=== PATIENT | female | born 1995 | race Caucasian/White ===

== ENCOUNTER 2019-10-09 11:26 | Inpatient (IN) | payer MEDICAID ==
[2019-10-09] MEDS ORDERED: RINGERS SOLUTION,LACTATED 1,000 ML IV PRN (12:30)
[2019-10-09] MEDS ORDERED: RINGERS SOLUTION,LACTATED 1,000 ML IV ONE (12:30)
--- NOTE | 2019-10-09 12:38 | Warning Signs in Babies ---
VOD Warning Signs Datetime Report Generated by N: 10/09/2019 12:38 VOD#608 -Warning Signs in Babies: Viewed with Parent(s)/Family (10/09/2019 12:37:Jerry Garcia RN)
[2019-10-09 13:01] LABS: APPEARANCE,URINE SLIGHTLY-CLOUDY; BILIRUBIN,URINE NEGATIVE (NEGATIVE); COLOR,URINE YELLOW; GLUCOSE, URINE NEGATIVE (NEGATIVE); KETONES,URINE 20 mg/dL (NEGATIVE); LEUKOCYTE ESTERASE,URINE NEGATIVE (NEGATIVE); NITRITE,URINE NEGATIVE (NEGATIVE); PROTEIN,URINE 100 mg/dL (NEGATIVE); URINE SPECIFIC GRAVITY 1.014; UROBILINOGEN,URINE NEGATIVE mg/dL (<2.0)
[2019-10-09 13:21] LABS: URINE AMPHETAMINES SCREEN NEGATIVE; URINE BARBITURATES SCREEN NEGATIVE; URINE BENZODIAZEPINES SCREEN NEGATIVE; URINE COCAINE SCREEN NEGATIVE; URINE MARIJUANA (THC) SCREEN NEGATIVE; URINE METHADONE SCREEN NEGATIVE; URINE PHENCYCLIDINE SCREEN NEGATIVE
[2019-10-09] MEDS ORDERED: OXYTOCIN 10 UNIT/ML VIAL ONE (13:24)
[2019-10-09] MEDS ORDERED: LIDOCAINE 1% INJ-PF (10 MG/ML) 30 ML SDV ONE (13:24)
[2019-10-09] MEDS ORDERED: MISOPROSTOL 0.2 MG TABLET ONE (13:24)
[2019-10-09] MEDS ORDERED: OXYTOCIN/0.9 % SODIUM CHLORIDE 30 UNIT/500 ML RTUINJ ONE (13:25)
[2019-10-09 13:28] LABS: ABSOLUTE LYMPHOCYTES (AUTO) 1.3 10^3/uL (0.5-4.7); ABSOLUTE MONOCYTES (AUTO) 0.6 10^3/uL (0.1-1.4); ABSOLUTE NEUT (AUTO) 8.2 10^3/uL (1.7-8.2); BASOPHILS % (AUTO) 0.4 % (0-2); EOSINOPHILS % (AUTO) 0.1 % (0-6); HEMATOCRIT 33.2 % (36.0-47.0); HEMOGLOBIN 11.3 g/dL (12.0-15.5); LYMPHOCYTES % (AUTO) 12.9 % (13-45); MEAN CORPUSCULAR HEMOGLOBIN 30.4 pg (27.0-33.4); MEAN CORPUSCULAR HGB CONC 34.1 g/dL (32.0-36.0); MEAN CORPUSCULAR VOLUME 89 fl (80-97); MONOCYTES % (AUTO) 5.9 % (3-13); PLATELET COUNT 164 10^3/uL (150-450); RED BLOOD COUNT 3.73 10^6/uL (3.72-5.28); RED CELL DISTRIBUTION WIDTH 13.7 % (11.5-14.0); SEGMENTED NEUTROPHILS % (AUTO) 80.7 % (42-78); TOTAL CELLS COUNTED % (AUTO) 100 %; WHITE BLOOD COUNT 10.2 10^3/uL (4.0-10.5)
--- NOTE | 2019-10-09 13:37 | Admission Physical ---
Datetime Report Generated by CPN: 10/09/2019 13:37 CURRENT ADMISSION Hx Assessment: The History has been Reviewed and is Current Chief Complaint: Uterine Contractions Chief Complaint Other: ROM Indication for Induction: Not Applicable Admit Impression : Term, Intrauterine ; Active Labor; Ruptured Membranes Admit Plan: Admit to Unit; Initiate Labor Protocol ALLERGIES Medication Allergies: No Medication Allergies: crab/MO (10/09/2019) Latex: No Latex Allergies Food Allergies: Crab Environmental Allergies: None OBSTETRICAL HISTORY EDC: 10/13/2019 00:00 : 1 Para: 0 Term: 0 : 0 SAB: 0 IAB: 0 Ectopic: 0 Cesareans: 0 VBACs: 0 Multiple Births: 0 Gestational Diabetes: No Rh Sensitization: No Incompetent Cervix: No CARMELINA: No Infertility: No ART Treatment: No Uterine Anomaly: No IUGR: No Hx Previous C/S: No Macrosomia: No Hx Loss/Stillborn: No PIH: No Hx : No Placenta Previa/Abruption: No Depression/PP Depression: No PTL/PROM: No Post Hemorrhage: No Current Procedures: Ultrasound Obstetrical History Comments: G1- current SEE RECORDS Alcohol: No Marijuana : No Cocaine: No Other Illicit Drugs: No Cigarettes: Former Smoker. [id number] MEDICAL HISTORY Diabetes: No Blood Transfusion: No Pulmonary Disease (Asthma, TB): No Breast Disease: No Hypertension: No Clinical Biochemist Surgery: No Heart Disease: No Hosp/Surgery: Yes Autoimmune Disorder: No Anesthetic Complications: No Kidney Disease: No Abnormal Pap Smear: No Neuro/Epilepsy: No Psychiatric Disorders: No Other Medical Diseases: No Hepatitis/Liver Disease: No Significant Family History: No Varicosities/Phlebitis: No Trauma/Violence : No Thyroid Dysfunction: No Medical History Comments: Mims teeth removed INFECTIOUS HISTORY Gonorrhea: No Genital Herpes: No Chlamydia: No Tuberculosis: No Syphilis: No Hepatitis: No HIV/AIDS Exposure: No Rash or Viral Illness: No HPV: No PHYSICAL EXAM General: Normal HEENT: Normal Neurologic: Normal Thyroid: Deferred Heart: Normal Lungs: Normal Breast: Deferred Back: Normal Abdomen: Normal Genitourinary Exam: Normal Extremities: Normal DTRs: Deferred Pelvic Type: Adequate Physical Exam Comments: vegetarian SROM GBS neg FETUS A EGA: 39.3 Monitoring: External US Admit Comment: Admitted to LD with SROM, GBS neg, Dr. Astorga Aware PLANS FOR LABOR AND DELIVERY Labor and Delivery: None Pain Management: Epidural Feeding Preference: Both Benefit of Breast Feed Discussed: Yes INFORMED CONSENT Assignment: Chi Astorga MD Signature: with User ID: [email or web address] : with User ID: [email or web address]
--- NOTE | 2019-10-09 15:11 | L&D Progress Notes ---
PROGRESS NOTES Datetime Report Generated by CPN: 10/09/2019 15:11 PROGRESS NOTE Comment: Cat 1 strip, irreg uc's, will recheck and if no progress start Pitocin per Dr. Astorga FETUS A : 39.2 SIGNATURE SIGNATURE: [id number] Assignment: Chi Astorga MD Signature: with User ID: [email or web address] : with User ID: [email or web address]
[2019-10-09] MEDS ORDERED: OXYTOCIN/0.9 % SODIUM CHLORIDE 30 UNIT/500 ML RTUINJ IV PRN ×2 (15:36→22:33)
[2019-10-09] MEDS ORDERED: EPHEDRINE SULFATE INJ 50 MG/1 ML AMPULE ONE (17:06)
[2019-10-09] MEDS ORDERED: ROPIVACAINE HCL 0.2% INJ/PF (2 MG/ML) 20 ML SDV ONE (17:06)
[2019-10-09] MEDS ORDERED: FENTANYL/BUPIVACAINE/NS/PF 300 MCG/150 ML RTUINJ EPI ONE (17:06)
[2019-10-09] MEDS ORDERED: ACETAMINOPHEN 650 MG SUPP.RECT PR PRN (22:33)
[2019-10-09] MEDS ORDERED: MEASLES,MUMPS&RUBELLA VACC/PF 0.5 ML VIAL SUBCUT PRN (22:33)
[2019-10-09] MEDS ORDERED: GLYCERIN/WITCH HAZEL LEAF 1 EACH MED..WIPE TP PRN (22:33)
[2019-10-09] MEDS ORDERED: DIBUCAINE 1% OINTMENT 28 GM TP PRN (22:33)
[2019-10-09] MEDS ORDERED: ACETAMINOPHEN WITH CODEINE #3 TABLET PO PRN (22:33)
[2019-10-09] MEDS ORDERED: PSEUDOEPHEDRINE HCL 30 MG TABLET PO PRN (22:33)
[2019-10-09] MEDS ORDERED: ZOLPIDEM TARTRATE 5 MG TABLET PO PRN (22:33)
[2019-10-09] MEDS ORDERED: MAGNESIUM HYDROXIDE SUSP 30 ML UDCUP PO PRN (22:33)
[2019-10-09] MEDS ORDERED: BENZOCAINE/MENTHOL AEROSOL SPRAY 56 ML TOP PRN (22:33)
[2019-10-09] MEDS ORDERED: PROMETHAZINE HCL 25 MG TABLET PO PRN (22:33)
[2019-10-09] MEDS ORDERED: DIPH/PERTUSS(ACELL)/TETANUS VAC/PF 0.5 ML SYR (>=10YO) IM PRN (22:33)
[2019-10-09] MEDS ORDERED: DIPHENHYDRAMINE HCL 25 MG CAPSULE PO PRN (22:33)
[2019-10-09] MEDS ORDERED: PROMETHAZINE HCL INJ 25 MG/1 ML VIAL IV PRN (22:33)
[2019-10-09] MEDS ORDERED: NA PHOS,M-B/NA PHOS,DI-BA (ADULT) 133 ML ENEMA PR PRN (22:33)
[2019-10-09] MEDS ORDERED: PROMETHAZINE HCL 25 MG SUPP.RECT PR PRN (22:33)
--- NOTE | 2019-10-10 00:18 | Delivery Summary ---
Del Sum A-C Datetime Report Generated by CPN: 10/10/2019 00:18 DELIVERY PERSONNEL DELIVERY PERSONNEL: [id number] Delivery Doctor:: Chi Astorga MD Labor and Delivery Nurse:: Allison Munoz RN Labor and Delivery Nurse:: Feli House RN Nursery Nurse:: Ly REYES Asset Management Analyst/METAL TRIM ERECTOR: Juliana Beebe, LABORATORY SAMPLE CARRIER MATERNAL INFORMATION Delivery Anesthesia: Epidural Medications After Delivery: Pitocin Bolus-Please Comment; Pitocin 30 Units in 500ml NS/D5W Meds After Delivery Comment: pitocin bolus following placenta delivery Delivery QBL: 300 Maternal Complications: None LABOR SUMMARY EDC: 10/13/2019 00:00 No. Babies in Womb: 1 Attempted: No Labor Anesthesia: Epidural LABOR INFORMATION Reason for Induction: Not Applicable Onset of Labor: 10/09/2019 13:07 Complete Dilatation: 10/09/2019 21:06 Oxytocin: Augmentation Group B Beta Strep: Negative Steroids Given: None Reason Steroids Not Administered: Not Applicable MEMBRANES Membranes Rupture Method: Spontaneous Rupture of Membranes: 10/09/2019 01:00 Length of Rupture (hr): 21.38 Amniotic Fluid Color: Clear Amniotic Fluid Amount: Small STAGES OF LABOR Stage 1 hr: 7 Stage 1 min: 59 Stage 2 hr: 1 Stage 2 min: 17 Stage 3 hr: 0 Stage 3 min: 4 Total Time in Labor hr: 9 Total Time in Labor min: 20 VAGINAL DELIVERY Episiotomy: None Laceration #1: None Laceration Extension #1: N/A Laceration Repair: Not Applicable Sponge Count Correct: N/A Sharps Count Correct: N/A CSECTION DELIVERY Primary Indication: N/A Secondary Indication: N/A CSection Urgency: N/A CSection Incidence: N/A Labor: N/A Elective: N/A CSection Incision: N/A BABY A INFORMATION Delivery Date/Time: 10/09/2019 22:23 Method of Delivery: Vaginal Nurse Controlled Delivery: No Born in Route : No : N/A Forceps: N/A Vacuum Extraction: N/A Shoulder Dystocia : No PRESENTATION/POSITION BABY A Presentation: Cephalic Cephalic Presentation: Vertex Vertex Position: Right Occipital Anterior Breech Presentation: N/A PLACENTA INFORMATION BABY A Placenta Delivery Time : 10/09/2019 22:27 Placenta Method of Delivery: Spontaneous Placenta Status: Delivered SCORES BABY A Heart Rate 1 min: >100 bpm Resp Effort 1 min: Good Cry Reflex Irritability 1 min: Cough or Sneeze or Pulls Away Muscle Tone 1 min: Active Motion Color 1 min: Blue/Pale Resuscitation Effort 1 min: Tactile Stimulation SCORE 1 MIN: 8 Heart Rate 5 min: >100 bpm Resp Effort 5 min: Good Cry Reflex Irritability 5 min: Cough or Sneeze or Pulls Away Muscle Tone 5 min: Active Motion Color 5 min: Body [place], Extremities Blue Resuscitation Effort 5 min: N/A SCORE 5 MIN: 9 INFORMATION BABY A Gestational Age at Delivery: 39.3 Gestational Status: Full Term- 39- 40.6 Weeks Outcome : Liveborn Condition : Stable Infant Sex: Male IDENTIFICATION BABY A Infant Verification Date/Time: 10/09/2019 23:28 ID Band Number: [id number] Mother's Name Verified: Yes RN Verifying Infant: Christin Munoz RN/Chris Geedavidscott RN WEIGHT/LENGTH BABY A Infant Birthweight (gm): 3590 Infant Weight (lb): 7 Infant Weight (oz): 15 Length (in): 22.00 Length (cm): 55.88 CORD INFORMATION BABY A No. Cord Vessels: 3 Nuchal Cord : Around Neck x1, Loose Cord Blood Taken: Yes-For Storage (Mom's Blood type +) Infant Suction: Mouth ASSESSMENT BABY A Complications: Other Infant Complications- Other: terminal mec Physical Findings at Delivery: Within Normal Limits; Other Physical Findings- Other: see nursery assessment Respirations: Appears Normal Skin to Skin: Yes Skin to Skin Time (min): 60 Dial Printer/ALS Called : No Infant Care By: Ly Ad RN Transferred To: Remains with Mother BABY B INFORMATION : N/A SIGNATURES Signature: with User ID: [email or web address]
--- NOTE | 2019-10-10 01:41 | Delivery Summary ---
Del Sum A-C Datetime Report Generated by CPN: 10/10/2019 01:41 DELIVERY PERSONNEL DELIVERY PERSONNEL: [id number] Delivery Doctor:: Chi Astorga MD Labor and Delivery Nurse:: Allison Munoz RN Labor and Delivery Nurse:: Feli House RN Nursery Nurse:: Ly REYES Animal Care Provider/MACHINE ADJUSTER LEADER: Juliana Beebe, INTERNATIONAL STUDENT ADVISOR MATERNAL INFORMATION Delivery Anesthesia: Epidural Medications After Delivery: Pitocin Bolus-Please Comment; Pitocin 30 Units in 500ml NS/D5W Meds After Delivery Comment: pitocin bolus following placenta delivery Delivery QBL: 300 Maternal Complications: None LABOR SUMMARY EDC: 10/13/2019 00:00 No. Babies in Womb: 1 Attempted: No Labor Anesthesia: Epidural LABOR INFORMATION Reason for Induction: Not Applicable Onset of Labor: 10/09/2019 13:07 Complete Dilatation: 10/09/2019 21:06 Oxytocin: Augmentation Group B Beta Strep: Negative Steroids Given: None Reason Steroids Not Administered: Not Applicable MEMBRANES Membranes Rupture Method: Spontaneous Rupture of Membranes: 10/09/2019 01:00 Length of Rupture (hr): 21.38 Amniotic Fluid Color: Clear Amniotic Fluid Amount: Small STAGES OF LABOR Stage 1 hr: 7 Stage 1 min: 59 Stage 2 hr: 1 Stage 2 min: 17 Stage 3 hr: 0 Stage 3 min: 4 Total Time in Labor hr: 9 Total Time in Labor min: 20 VAGINAL DELIVERY Episiotomy: None Laceration #1: None Laceration Extension #1: N/A Laceration Repair: Not Applicable Sponge Count Correct: N/A Sharps Count Correct: N/A CSECTION DELIVERY Primary Indication: N/A Secondary Indication: N/A CSection Urgency: N/A CSection Incidence: N/A Labor: N/A Elective: N/A CSection Incision: N/A BABY A INFORMATION Delivery Date/Time: 10/09/2019 22:23 Method of Delivery: Vaginal Nurse Controlled Delivery: No Born in Route : No : N/A Forceps: N/A Vacuum Extraction: N/A Shoulder Dystocia : No PRESENTATION/POSITION BABY A Presentation: Cephalic Cephalic Presentation: Vertex Vertex Position: Right Occipital Anterior Breech Presentation: N/A PLACENTA INFORMATION BABY A Placenta Delivery Time : 10/09/2019 22:27 Placenta Method of Delivery: Spontaneous Placenta Status: Delivered SCORES BABY A Heart Rate 1 min: >100 bpm Resp Effort 1 min: Good Cry Reflex Irritability 1 min: Cough or Sneeze or Pulls Away Muscle Tone 1 min: Active Motion Color 1 min: Blue/Pale Resuscitation Effort 1 min: Tactile Stimulation SCORE 1 MIN: 8 Heart Rate 5 min: >100 bpm Resp Effort 5 min: Good Cry Reflex Irritability 5 min: Cough or Sneeze or Pulls Away Muscle Tone 5 min: Active Motion Color 5 min: Body [place], Extremities Blue Resuscitation Effort 5 min: N/A SCORE 5 MIN: 9 INFORMATION BABY A Gestational Age at Delivery: 39.3 Gestational Status: Full Term- 39- 40.6 Weeks Outcome : Liveborn Condition : Stable Infant Sex: Male IDENTIFICATION BABY A Infant Verification Date/Time: 10/09/2019 23:28 ID Band Number: [id number] Mother's Name Verified: Yes RN Verifying Infant: Christin Munoz RN/Chris Geedavidscott RN WEIGHT/LENGTH BABY A Infant Birthweight (gm): 3590 Infant Weight (lb): 7 Infant Weight (oz): 15 Length (in): 22.00 Length (cm): 55.88 CORD INFORMATION BABY A No. Cord Vessels: 3 Nuchal Cord : Around Neck x1, Loose Cord Blood Taken: Yes-For Storage (Mom's Blood type +) Infant Suction: Mouth ASSESSMENT BABY A Complications: Other Infant Complications- Other: terminal mec Physical Findings at Delivery: Within Normal Limits; Other Physical Findings- Other: see nursery assessment Respirations: Appears Normal Skin to Skin: Yes Skin to Skin Time (min): 60 Residential Green Building Designer/ALS Called : No Infant Care By: Ly Ad RN Transferred To: Remains with Mother BABY B INFORMATION : N/A SIGNATURES Signature: with User ID: [email or web address]
[2019-10-10] MEDS: IBUPROFEN 800 MG TABLET PO SCH ×3 (06:29→21:39)
[2019-10-10 08:13] LABS: HEMATOCRIT 29.3 % (36.0-47.0); MEAN CORPUSCULAR HEMOGLOBIN 30.3 pg (27.0-33.4); MEAN CORPUSCULAR HGB CONC 34.1 g/dL (32.0-36.0); MEAN CORPUSCULAR VOLUME 89 fl (80-97); PLATELET COUNT 168 10^3/uL (150-450); RED BLOOD COUNT 3.31 10^6/uL (3.72-5.28); RED CELL DISTRIBUTION WIDTH 13.8 % (11.5-14.0); WHITE BLOOD COUNT 13.7 10^3/uL (4.0-10.5)
[2019-10-10] MEDS: DOCUSATE SODIUM 100 MG CAPSULE PO SCH ×2 (09:33→17:24)
[2019-10-10] MEDS: FERROUS SULFATE 325 MG TABLET PO SCH ×2 (09:33→17:24)
[2019-10-10] MEDS: PRENATAL VITAMIN W DHA CAPSULE PO SCH (09:33)
[2019-10-10] MEDS: FAMOTIDINE 20 MG TABLET PO SCH ×2 (09:41→21:39)
[2019-10-10] MEDS ORDERED: SENNOSIDES/DOCUSATE 8.6-50 MG 1 EACH TABLET PO SCH (10:00)
--- NOTE | 2019-10-10 11:17 | PDOC PROGRESS REPORT ---
Subjective-OB Progress Note for:: 10/10/19 - PP Day #1, doing well, A+, rubella immune, OUB, voiding Physical Exam (OB) Vital Signs: Temp Pulse Resp BP Pulse Ox 97.9 F 64 16 119/64 100 10/10/19 08:29 10/10/19 08:29 10/10/19 08:29 10/10/19 08:29 10/10/19 08:29 Intake & Output 10/09/19 10/10/19 10/11/19 06:59 06:59 06:59 Intake Total 400 Balance 400 Weight 88.7 kg - General General Appearance: Appears well, Alert In distress: None - PIH/Pre-Eclampsia Clonus: Negative Headache: Absent Epigastric Pain: No Visual Changes: No - Lochia Lochia Amount: Small 10-25 ml Lochia Color: Rubra/Red - Abdomen Description: Soft Hernia Present: No Fundal Description: Firm, Midline Fundal Height: u/u - u/2 - Respiratory Respiratory Status: No respiratory distress - Abdominal Distension: No distension Tenderness: Nontender - Genitourinary Genitourinary Note: voiding - Extremities Upper extremity: Normal inspection Lower extremities: Normal inspection - Neurological Cognition: Normal Orientation: AAOx4 - Psychological Associated symptoms: Normal affect, Normal mood - Skin Skin Temperature: Warm Skin Moisture: Dry Objective-Diagnostic Laboratory: 10/10/19 07:20 10/09/19 10/09/19 10/09/19 11:43 12:57 12:57 WBC 10.2 RBC 3.73 Hgb 11.3 L Hct 33.2 L MCV 89 MCH 30.4 MCHC 34.1 RDW 13.7 Plt Count 164 Seg Neutrophils % 80.7 H Urine Color YELLOW Urine Appearance SLIGHTLY-CLOUDY Urine pH 7.0 Ur Specific [place] 1.014 Urine Protein 100 H Urine Glucose (UA) NEGATIVE Urine Ketones 20 H Urine Blood LARGE H Urine Nitrite NEGATIVE Ur Leukocyte Esterase NEGATIVE Blood Type A POSITIVE Antibody Screen NEGATIVE 10/10/19 07:20 WBC 13.7 H RBC 3.31 L Hgb 10.0 L Hct 29.3 L MCV 89 MCH 30.3 MCHC 34.1 RDW 13.8 Plt Count 168 Seg Neutrophils % Urine Color Urine Appearance Urine pH Ur Specific [place] Urine Protein Urine Glucose (UA) Urine Ketones Urine Blood Urine Nitrite Ur Leukocyte Esterase Blood Type Antibody Screen Assessment and Plan(PN) - Assessment and Plan (1) (normal spontaneous vaginal delivery) Is this a current diagnosis for this admission?: Yes Plan:: routine PP orders, ambulation encouraged - Time Spent with Patient Time with patient: Less than 15 minutes Medications reviewed and adjusted accordingly: Yes - Disposition Anticipated Discharge Disposition: Home, Self Care Anticipated Discharge Timeframe: within 24 hours
[2019-10-11] MEDS: IBUPROFEN 800 MG TABLET PO SCH ×2 (05:46→15:38)
[2019-10-11 08:00] VITALS: BP 110/66
[2019-10-11] MEDS: FERROUS SULFATE 325 MG TABLET PO SCH ×2 (09:57→18:36)
[2019-10-11] MEDS: FAMOTIDINE 20 MG TABLET PO SCH (09:57)
[2019-10-11] MEDS: DOCUSATE SODIUM 100 MG CAPSULE PO SCH ×2 (09:58→18:36)
[2019-10-11] MEDS: PRENATAL VITAMIN W DHA CAPSULE PO SCH (09:58)
--- NOTE | 2019-10-11 11:04 | PDOC DISCHARGE SUMMARY ---
Impression - Admit/DC Date/PCP Admission Date/Primary Care Provider: 10/09/19 11:32 ASHLEIGH PARDO MD Discharge Date: 10/11/19 - PPDay #2, doing well today - Discharge Diagnosis (1) (normal spontaneous vaginal delivery) Is this a current diagnosis for this admission?: Yes (2) Normal course Is this a current diagnosis for this admission?: Yes - Additional Information Resuscitation Status: Full Code Discharge Diet: As Tolerated, Regular Discharge Activity: Activity As Tolerated, No Lifting Over 10 Pounds, Pelvic Rest Referrals: ASHLEIGH PARDO MD [Primary Care Provider] - Prescriptions: Ibuprofen [Motrin 800 mg Tablet] 800 mg PO Q8 #60 tablet Home Medications: Ferrous Gluconate [Iron] 325 mg PO DAILY 10/09/19 No122/Iron/Folic Acid [ Multi Tablet] 1 each PO DAILY 10/09/19 Ibuprofen [Motrin 800 mg Tablet] 800 mg PO Q8 #60 tablet 10/11/19 HPI Reason(s) for Admission: Onset of Labor Procedures: Ultrasound Intrapartum Procedure(s): Spontaneous Vaginal Delivery Hospital Course Hospital Course: routine Results Laboratory Results: WBC 13.7 10^3/uL (4.0-10.5) H 10/10/19 07:20 RBC 3.31 10^6/uL (3.72-5.28) L 10/10/19 07:20 Hgb 10.0 g/dL (12.0-15.5) L 10/10/19 07:20 Hct 29.3 % (36.0-47.0) L 10/10/19 07:20 MCV 89 fl (80-97) 10/10/19 07:20 MCH 30.3 pg (27.0-33.4) 10/10/19 07:20 MCHC 34.1 g/dL (32.0-36.0) 10/10/19 07:20 RDW 13.8 % (11.5-14.0) 10/10/19 07:20 Plt Count 168 10^3/uL (150-450) 10/10/19 07:20 Lymph % (Auto) 12.9 % (13-45) L 10/09/19 12:57 [place] % (Auto) 5.9 % (3-13) 10/09/19 12:57 Eos % (Auto) 0.1 % (0-6) 10/09/19 12:57 Baso % (Auto) 0.4 % (0-2) 10/09/19 12:57 Absolute Neuts (auto) 8.2 10^3/uL (1.7-8.2) 10/09/19 12:57 Absolute Lymphs (auto) 1.3 10^3/uL (0.5-4.7) 10/09/19 12:57 Absolute Monos (auto) 0.6 10^3/uL (0.1-1.4) 10/09/19 12:57 Absolute Eos (auto) 0.0 10^3/uL (0.0-0.6) 10/09/19 12:57 Absolute Basos (auto) 0.0 10^3/uL (0.0-0.2) 10/09/19 12:57 Seg Neutrophils % 80.7 % (42-78) H 10/09/19 12:57 Urine Color YELLOW 10/09/19 11:43 Urine Appearance SLIGHTLY-CLOUDY 10/09/19 11:43 Urine pH 7.0 (5.0-9.0) 10/09/19 11:43 Ur Specific [place] 1.014 10/09/19 11:43 Urine Protein 100 mg/dL (NEGATIVE) H 10/09/19 11:43 Urine Glucose (UA) NEGATIVE mg/dL (NEGATIVE) 10/09/19 11:43 Urine Ketones 20 mg/dL (NEGATIVE) H 10/09/19 11:43 Urine Blood LARGE (NEGATIVE) H 10/09/19 11:43 Urine Nitrite NEGATIVE (NEGATIVE) 10/09/19 11:43 Urine Bilirubin NEGATIVE (NEGATIVE) 10/09/19 11:43 Urine Urobilinogen NEGATIVE mg/dL (<2.0) 10/09/19 11:43 Ur Leukocyte Esterase NEGATIVE (NEGATIVE) 10/09/19 11:43 Urine Ascorbic Acid 20 (NEGATIVE) H 10/09/19 11:43 Urine Opiates Screen NEGATIVE 10/09/19 11:43 Urine Methadone Screen NEGATIVE 10/09/19 11:43 Ur Barbiturates Screen NEGATIVE 10/09/19 11:43 Ur Phencyclidine Scrn NEGATIVE 10/09/19 11:43 Ur Amphetamines Screen NEGATIVE 10/09/19 11:43 U Benzodiazepines Scrn NEGATIVE 10/09/19 11:43 Urine Cocaine Screen NEGATIVE 10/09/19 11:43 U Marijuana (THC) Screen NEGATIVE 10/09/19 11:43 RPR NONREACTIVE (NONREACTIVE) 10/09/19 12:57 Blood Type A POSITIVE 10/09/19 12:57 Antibody Screen NEGATIVE 10/09/19 12:57 Plan Plan of Treatment: d/c home, f/up with [facility] in 4 week for PP check Time Spent: Less than 30 Minutes
== END 2019-10-11 20:56 | disposition home or self-care (01) | DRG 807 ==
LOC: LC 11:26 → LR 11:32 → 2S 10-10 00:30
PROVIDERS: ADMIT Obstetrics & Gynecology Gynecology; ATTEND Obstetrics & Gynecology Gynecology
PROC: 10E0XZZ Delivery of Products of Conception, External Approach (ICD-10-PCS; principal; 2019-10-09)
DX: O69.81X0 Labor and delivery complicated by cord around neck, without compression, not applicable or unspecified (principal); Z37.0 Single live birth; Z11.59 Encounter for screening for other viral diseases; Z91.013 Allergy to seafood; Z87.891 Personal history of nicotine dependence; Z3A.39 39 weeks gestation of pregnancy
CPT/HCPCS: 1967; 36415; 80307; 81005; 85025; 85027; 86592; 86850; 86900; 86901; 94760; C1758; J2590; J2795; J3010; J3490